=== PATIENT | female | born 1985 | race Caucasian/White ===

== ENCOUNTER 2023-11-19 08:41 | Oncology outpatient (recurring) (ONCR) | payer BC, SELFPAY | END 2023-12-04 23:59 | disposition home or self-care (01) | LOC: ONCMED 08:43 | PROVIDERS: Visit Provider Internal Medicine Medical Oncology | DX: C81.18 Nodular sclerosis Hodgkin lymphoma, lymph nodes of multiple sites (principal) | CPT/HCPCS: 96523 ==